=== PATIENT | male | born 1960 | race Caucasian/White ===

== ENCOUNTER 2021-02-05 08:20 | Day surgery (SDC) | payer BC ==
[2021-02-04 15:53] LABS: Absolute Lymphocytes (CBC) 1.9 K/uL (0.7-4.9); Basophils % 1.2 % (0-1.3); Hematocrit 45.9 % (39.6-49.0); Lymphocytes % 17.6 % (15.3-44.8); MPV 7.2 fL (7.6-11.3); RBC Red Blood Cell Count 4.73 M/uL (4.33-5.43)
[2021-02-04 16:06] LABS: Potassium 3.7 mmol/L (3.5-5.1)
--- NOTE | 2021-02-04 16:45 | RAD REPORT ---
EXAM DESCRIPTION: RAD - Chest Pa And Lat (2 Views) - 02/04/2021 3:50 pm CLINICAL HISTORY: preop, patient pending soft tissue mass removal COMPARISON: February 2010 TECHNIQUE: Frontal and lateral views of the chest were obtained. FINDINGS: The lungs are clear of focal finding. Interstitial pattern is more prominent than comparis on. No hilar abnormality seen. Diaphragm is flattened. Heart size is normal and central vasculature is within normal limits. No pleural effusion or pneumothorax seen. No acute bony finding noted. N o aortic abnormality. IMPRESSION: No acute cardiopulmonary process identifiable. Interstitial opacification has increased since 2009 probably a mild progressive fibrosis.
[2021-02-05] MEDS ORDERED: Ringers Lactate 1,000 ML IV ONE (09:26)
[2021-02-05] MEDS: CEFAZOLIN/SWI 1gm 1 GM/10 ML SYR ONE ×2 (09:43→09:58)
[2021-02-05] MEDS ORDERED: EPHEDRINE SULF 50 MG/ML VIAL ONE (10:35)
[2021-02-05] MEDS ORDERED: propofoL 200 MG/20 ML VIAL IV ONE (10:38)
[2021-02-05] MEDS ORDERED: FENTANYL CITR 100 MCG/2 ML ONE (10:38)
[2021-02-05] MEDS ORDERED: MIDAZOLAM HCL 2 MG/2 ML INJ ONE (10:38)
[2021-02-05] MEDS ORDERED: LIDOCAINE 2% MPF 5 ML VIAL ONE (10:38)
[2021-02-05 11:04] VITALS: O2SAT 95
[2021-02-05 11:15] VITALS: TEMP 97.4
--- NOTE | 2021-02-05 11:41 | OP ---
Date of Procedure: 02/05/2021 Surgeon: Yoel Lovett MD Tool And Gauge Inspector: CHACHO Arrington Preoperative Diagnosis: Left neck mass. Postoperative Diagnosis: Left neck mass. Procedure: Wide excision of left neck mass 4 x 2 cm with layered closure. Estimated Blood Loss: Minimal. Specimen: Left neck inflamed cyst Finding: As above. Anesthesia: General. Complications: None. Disposition: The patient tolerated the procedure in stable condition and taken to Recovery in good g eneral condition. Procedure In Detail: The patient was brought to the OR and placed in supine position. General anest hesia begun. The patient was prepped and draped in the usual sterile fashion. Marcaine 0.5% infiltr ated locally. A 15 blade was used to make a 4 x 2 cm incision to excise the cyst, which was in the d ermis, most consistent with an epidermal inclusion cyst down through the subcutaneous tissue. The en tire cyst excised in 1 piece. There was some inflammatory tissue present and cultures were done. Wo und irrigated. Bleeding controlled with cautery. Flaps created. A 2-0 chromic used to approximate the subcutaneous tissue and 5-0 nylon used to close the skin. Sterile dressing applied. The patient was awakened and taken to Recovery in good general condition. Discharge Note: The patient will go to Day Surgery and home when stable. Disposition: Home. Condition: Stable. Discharge Instructions: Resume home medications and diet. Activity as tolerated. No heavy lifting. Remove outer dressing in 2 days. Shower. Keep wound clean and dry. Follow up in my office in a marisela [place]. Call for appointment. Tylenol No.3 one tablet p.o. q.4 p.r.n. pain and Cipro 500 mg p.o. q.12. /MODL Voice ID: [id number] Report ID: [id number]
[2021-02-05 13:47] VITALS: BP 134/87
--- NOTE | 2021-02-06 10:29 | EKG ---
Test Date: 2021-02-04 Test Time: 14:28:16 Blue Split Trimmer: SHENG MEASUREMENT RESULTS: Intervals: Rate: 70 IN: 122 QRSD: 94 QT: 378 QTc: 408 [place]: P: IN: 122 QRS: 96 T: 39 INTERPRETIVE STATEMENTS: Normal sinus rhythm Rightward axis Borderline ECG Compared to ECG 10/01/2007 00:55:35 Right-axis deviation now present Electronically Signed On 02-06-21 10:25:56 CDT by Remy Snowden
== END 2021-02-05 12:22 | disposition home or self-care (01) ==
LOC: OR 08:20
PROVIDERS: ATTEND Surgery
PROC: 0JB50ZZ Excision of Left Neck Subcutaneous Tissue and Fascia, Open Approach (ICD-10-PCS; principal; 2021-02-05 09:45)
DX: L72.0 Epidermal cyst (principal); Z20.822 Contact with and (suspected) exposure to COVID-19
CPT/HCPCS: 93005; 87070; 85025; 80048; 36415; 87205; 88304; 71046; 11424; U0003; J2704; J2250; J3010; J0690; J7120; 88305

== ENCOUNTER 2022-01-18 20:20 | Emergency (ER) | payer BC, SELFPAY ==
--- OUTSIDE RECORDS SUMMARY | 2022-01-18 20:22 | XMS REPORT | Continuity of Care Document ---
:1960 Author Organization [facility] t Address [address] [place] [address] [address] [place] [address] Care Team Providers Name Role Phone RUBÉN Primary Care Physician Unavailable ALEXI BACON Attending Clinician Unavailable Alexi Reece Attending Clinician ALEXI BACON Admitting Clinician Unavailable Payers Payer Name Policy Type Policy Number Effective Date Expiration Date S [facility] - [id number] 2016 00:00:00 OUT OF STATE Problems This patient has no known problems. Allergies, Adverse Reactions, Alerts Allergy Allergy Status Severity Reaction(s) Onset Inactive Treating Comm ents Source Name Type Date Date Clinician NO KNOWN Drug Active [facility] ALLERGIE [facility] Social History Social Habit Start Date Stop Date Quantity Comments Source Exposure to Not sure [facility] SARS-CoV-2 (event) Medica l Branch Alcohol intake 2017-03-17 2017-03-17 0 /d [facility] 00:00:00 00:00:00 [facility] Cigarettes smoked 2016-10-21 2016-10-21 [facility] current (pack per 00:00:00 00:00:00 [facility] day) - Reported Sex Assigned At [birth year] [facility] 00:00:00 00:00:00 [facility] Smoking Status Start Date Stop Date Source Current every day smoker 2016-10-21 00:00:00 [facility] Medications Ordered Filled Start Stop Current Ordering Indication Dosage Frequency Signature Comments Components Source Medication Medication Date Date Medication? Clinician (SIG) Name Name omeprazole Yes 40mg Take 40 mg U nivers 40 mg 8-11 by mouth ity of capsule 08:58: daily. [place] [address] [facility] [place] valsartan-h Yes 1{tbl} Take 1 Un kate ydrochlorot 8-11 tablet by ity of hiazide 08:58: mouth [place] 320-25 mg 31 daily. Medical per tablet Branch GLUC/CHND/O Yes Take by Un kate M3/DHA/EPA/ 8-11 mouth. ity of FISH/STR 08:58: [place] (GLUCOSAMIN 31 Medical E Branch CHONDROITIN PLUS ORAL) ASPIRIN Yes Take by [facility] s ORAL 8-11 mouth. ity of 08:58: [address] Vital Signs Vital Name Observation Time Observation Value Comments Source Body temperature 2021-11-10 15:49:41 36.56 Jasmin [facility] Systolic blood 2021-11-10 14:46:00 169 mm[Hg] [facility] Diastolic blood 2021-11-10 14:46:00 94 mm[Hg] [facility] Heart rate 2021-11-10 14:46:00 71 /min [facility] Respiratory rate 2021-11-10 14:46:00 18 /min [facility] Body weight 2021-11-10 14:46:[address] [facility] BMI 2021-11-10 14:46:00 25.84 kg/m2 [facility] Oxygen saturation in 2021-11-10 14:46:00 96 /min [facility] Arterial blood by [facility] Pulse oximetry Branch Procedures Procedure Date / Time Performed Performing Clinician Kathy e XR SHOULDER 2+ VW 2021-11-10 16:10:00 Loren Bacon [facility] RIGHT [facility] CONSENT/REFUSAL FOR 2021-11-10 14:45:18 [facility] Name Medical Branch TREATMENT Encounters Start End Encounter Admission Attending Care Care Encounter Source Date/Time Date/Time Type Type Clinicians Facility Department ID 2021-11-10 2021-11-10 Emergency X DESTINEE BACON ERT [id number] 85 [facility] 09:45:00 13:04:00 LOREN armas f [facility] 2021-11-10 2021-11-10 Emergency Pamela, TRAUMA [id number] [facility] 09:45:00 13:04:00 [facility] [id number] i Katherine [id number] Raina weaver [id number] [place] [id number] Branch Results This patient has no known results.
[2022-01-18] MEDS ORDERED: dexAMETHasone 10 MG/ML VIAL ONE (20:44)
[2022-01-18] MEDS ORDERED: ONDANSETRON 4 MG/2 ML VIAL ONE ×2 (20:44→22:14)
[2022-01-18] MEDS ORDERED: MORPHINE 4 MG/ML SYR ONE ×2 (20:44→22:14)
[2022-01-18] MEDS ORDERED: KETOROLAC 30 MG/ML INJ ONE (20:44)
[2022-01-18] MEDS ORDERED: DIAZEPAM 5 MG TABLET ONE (20:44)
[2022-01-18 20:59] LABS: Absolute Lymphocytes (CBC) 1.7 K/uL (0.7-4.9); Hematocrit 43.2 % (39.6-49.0); MPV 6.8 fL (7.6-11.3); RBC Red Blood Cell Count 4.34 M/uL (4.33-5.43)
--- NOTE | 2022-01-18 21:11 | RAD REPORT ---
EXAM DESCRIPTION: CT - C Spine Wo Con - 01/18/2022 9:00 pm CLINICAL HISTORY: Radiculopathy COMPARISON: 2012 TECHNIQUE: Computed axial tomography of the cervical spine were obtained with sagittal and coronal r econstruction images generated and reviewed. All CT scans are performed using dose optimization technique as appropriate and may include automated exposure control or mA/KV adjustment according to patient size. FINDINGS: A cervical fracture is not seen. Slight anterior subluxation C3 on C4 and C4 on C5 No dislocation Spondylosis C3-4 results in marked left foraminal stenosis. Small central disc osteophyte complex C5-6 mildly narrows the thecal sac. Possible moderate right posterolateral disc herniation C6-7 IMPRESSION: A cervical fracture is not seen. Spondylosis resulting in marked left foraminal stenosis C3-4 Small central disc osteophyte complex C5-6 Possible moderate right posterolateral disc herniation C6-7. Nonemergent MRI of the cervical spine is recommended
[2022-01-18 21:17] LABS: Albumin 3.5 g/dL (3.4-5.0); Bilirubin Total 1.5 mg/dL (0.2-1.0); Potassium 3.5 mmol/L (3.5-5.1); Protein, Total 6.6 g/dL (6.4-8.2); Troponin High Sensitivity 10.9 pg/mL (<58.9)
--- NOTE | 2022-01-18 21:17 | RAD REPORT ---
EXAM DESCRIPTION: CTThoracic Spine W/o Cont01/18/2022 9:00 pm CLINICAL HISTORY: Radiculopathy TECHNIQUE: Computed axial tomography of thoracic spine was obtained with coronal and sagittal recons truction. All CT scans are performed using dose optimization technique as appropriate and may include automated exposure control or mA/KV adjustment according to patient size. FINDINGS: No fracture is seen. No dislocation. A high-grade central/foraminal stenosis is not noted. IMPRESSION: Negative for a thoracic fracture High-grade central/foraminal stenosis is not noted. If the patient continues to have symptoms to suggest spinal cord/ spinal canal pathology pathology th en MRI would be recommended.
--- NOTE | 2022-01-18 21:50 | EDPHYS ---
Physician Documentation [facility] Name: Carlos Moe Age: 61 yrs Sex: Male : 1960 Arrival Date: 01/18/2022 Time: 20:22 Bed 7 Private MD: ED Physician Candelario Jerry HPI: 01/18 20:35 This 61 yrs old Male presents to ER via EMS with complaints of neck and upper halley back pain. 20:35 The patient presents with pain and decreased range of motion. The symptoms are located halley in the posterior cervical area and thoracic area. Onset: The symptoms/episode began/occurred 3 day(s) ago. The pain radiates to the right arm. Associated signs and symptoms: The patient has no apparent associated signs or symptoms. The problem was sustained from unknown cause. Modifying factors: The patient symptoms are alleviated by remaining still, rest, the patient symptoms are aggravated by lifting, movement. Severity of symptoms: At their worst the symptoms were moderate, in the emergency department the symptoms are unchanged. Historical: - Allergies: 20:23 No Known Allergies; sm5 - PMHx: 20:23 GERD; Hypertension; Chronic obstructive lung disease; Disc Degeneration; Arthritis; sm5 - Immunization history:: Client reports having NOT received the Covid vaccine. - Social history:: Smoking status: Patient reports the use of cigarette tobacco products, smokes one pack cigarettes per day. Patient uses alcohol, claims drinking about a 6 pack/day. - Family history:: not pertinent. ROS: 20:35 Constitutional: Negative for fever, chills, and weight loss, Eyes: Negative for injury, halley pain, redness, and discharge, ENT: Negative for injury, pain, and discharge, Neck: Negative for injury, pain, and swelling, Cardiovascular: Negative for chest pain, palpitations, and edema, Respiratory: Negative for shortness of breath, cough, wheezing, and pleuritic chest pain, Abdomen/GI: Negative for abdominal pain, nausea, vomiting, diarrhea, and constipation, Back: Negative for injury and pain, : Negative for injury, bleeding, discharge, and swelling, Skin: Negative for injury, rash, and discoloration, Neuro: Negative for headache, weakness, numbness, tingling, and seizure, Psych: Negative for depression, anxiety, suicide ideation, homicidal ideation, and hallucinations, Allergy/Immunology: Negative for hives, rash, and allergies, Endocrine: Negative for neck swelling, polydipsia, polyuria, polyphagia, and marked weight changes, Hematologic/Lymphatic: Negative for swollen nodes, abnormal bleeding, and unusual bruising. 20:35 MS/extremity: Positive for decreased range of motion, pain. Exam: 20:35 Constitutional: This is a well developed, well nourished patient who is awake, alert, halley and in no acute distress. Head/Face: Normocephalic, atraumatic. Eyes: Pupils equal round and reactive to light, extra-ocular motions intact. Lids and lashes normal. Conjunctiva and sclera are non-icteric and not injected. Cornea within normal limits. Periorbital areas with no swelling, redness, or edema. ENT: Nares patent. No nasal discharge, no septal abnormalities noted. Tympanic membranes are normal and external auditory canals are clear. Oropharynx with no redness, swelling, or masses, exudates, or evidence of obstruction, uvula midline. Mucous membranes moist. Neck: Trachea midline, no thyromegaly or masses palpated, and no cervical lymphadenopathy. Supple, full range of motion without nuchal rigidity, or vertebral point tenderness. No Meningismus. Chest/axilla: Normal chest wall appearance and motion. Nontender with no deformity. No lesions are appreciated. Cardiovascular: Regular rate and rhythm with a normal S1 and S2. No gallops, murmurs, or rubs. Normal PMI, no JVD. No pulse deficits. Respiratory: Lungs have equal breath sounds bilaterally, clear to auscultation and percussion. No rales, rhonchi or wheezes noted. No increased work of breathing, no retractions or nasal flaring. Abdomen/GI: Soft, non-tender, with normal bowel sounds. No distension or tympany. No guarding or rebound. No evidence of tenderness throughout. Back: No spinal tenderness. No costovertebral tenderness. Full range of motion. Male : Normal genitalia with no discharge or lesions. Skin: Warm, dry with normal turgor. Normal color with no rashes, no lesions, and no evidence of cellulitis. MS/ Extremity: Pulses equal, no cyanosis. Neurovascular intact. Full, normal range of motion. Neuro: Awake and alert, GCS 15, oriented to person, place, time, and situation. Cranial nerves II-XII grossly intact. Motor strength 5/5 in all extremities. Sensory grossly intact. Cerebellar exam normal. Normal gait. Psych: Awake, alert, with orientation to person, place and time. Behavior, mood, and affect are within normal limits. 21:02 ECG was reviewed by the Attending Physician. halley Vital Signs: 20:22 BP 168 / 92; Pulse 67; Resp 11; Temp 98.3(O); Pulse Ox 100% on R/A; Weight 72.57 kg; 5 Height 5 ft. 7 in. (170.18 cm); Pain 10/10; 22:19 BP 159 / 87; Pulse 70; Resp 14; Pulse Ox 100% on R/A; 5 20:22 Body Mass Index 25.06 (72.57 kg, 170.18 cm) [facility] MDM: 20:24 Patient medically screened. halley 20:40 Differential diagnosis: Osteoarthritis ruptured disc, spinal injury, sprain. Data halley reviewed: vital signs, nurses notes, lab test result(s), EKG, radiologic studies, CT scan. Data interpreted: starch cooker: rate is 67 beats/min, rhythm is regular, Pulse oximetry: on room air is 100 %. Test interpretation: by ED physician or midlevel provider: ECG. Counseling: I had a detailed discussion with the patient and/or guardian regarding: the historical points, exam findings, and any diagnostic results supporting the discharge/admit diagnosis, lab results, radiology results, the need for outpatient follow up, for definitive care, a family practitioner, a neurosurgeon. 01/18 20:32 Order name: CBC with Diff; Complete Time: 21:45 [facility] 01/18 20:32 Order name: Comprehensive Metabolic Panel; Complete Time: 21:45 [facility] 01/18 20:32 Order name: CT C Spine; Complete Time: 21:45 [facility] 01/18 20:32 Order name: CT Thoracic Spine Wo Cont; Complete Time: 21:45 [facility] 01/18 20:32 Order name: Troponin High Sensitivity; Complete Time: 21:45 [facility] 01/18 20:32 Order name: EKG; Complete Time: 20:32 [facility] 01/18 20:32 Order name: EKG - Nurse/Tech; Complete Time: 20:49 halley EC:02 Rate is 61 beats/min. Rhythm is regular. QRS [place] is Normal. [place] interval is shortened halley at 110 msec. QRS interval is normal. QT interval is normal. No Q waves. T waves are Normal. No ST changes noted. Clinical impression: No evidence of ischemia. Interpreted by me. Reviewed by me. Administered Medications: 20:49 Drug: Decadron - Dexamethasone 10 mg Route: IVP; Site: left antecubital; sm5 21:26 Follow up: Response: No adverse reaction sm5 20:49 Drug: Ketorolac 30 mg Route: IVP; Site: left antecubital; sm5 21:26 Follow up: Response: No adverse reaction sm5 20:49 Drug: Valium (diazepam) 5 mg Route: PO; sm5 21:26 Follow up: Response: No adverse reaction sm5 20:49 Drug: morphine 4 mg Route: IVP; Infused Over: 4 mins; Site: left antecubital; sm5 21:27 Follow up: Response: No adverse reaction sm5 20:49 Drug: Zofran (Ondansetron) 4 mg Route: IVP; Site: left antecubital; sm5 21:27 Follow up: Response: No adverse reaction sm5 22:07 Drug: morphine 4 mg Route: IVP; Infused Over: 4 mins; Site: left antecubital; sm5 22:20 Follow up: Response: No adverse reaction sm5 22:07 Drug: Zofran (Ondansetron) 4 mg Route: IVP; Site: left antecubital; sm5 22:21 Follow up: Response: No adverse reaction sm5 Disposition Summary: 01/18/22 21:49 Discharge Ordered Location: Home halley Problem: new halley Symptoms: have improved halley Condition: Stable halley Diagnosis - Cervical disc disorder with radiculopathy halley - Cervical disc disorder with radiculopathy, unspecified cervical region halley - Spondylolysis, cervical region halley Followup: halley - With: Private Physician - When: 2 - 3 days - Reason: Recheck today's complaints, Continuance of care, Re-evaluation by your physician Followup: halley - With: - When: 2 - 3 days - Reason: Recheck today's complaints, Re-evaluation by your physician Discharge Instructions: - Discharge Summary Sheet halley - Cervical Radiculopathy halley - Herniated Disk halley - Herniated Disk, [id number] halley - Cervical Radiculopathy, [id number] halley - Radicular Pain halley Forms: - Medication Reconciliation Form halley - Thank You Letter halley - Antibiotic Education halley - Prescription Opioid Use halley Prescriptions: - Valium 5 mg Oral Tablet - take 1 tablet by ORAL route every 8 hours As needed; 20 tablet; Refills: 0, halley Product Selection Permitted - Diclofenac Sodium 75 mg Oral tablet,delayed release (DR/EC) - take 1 tablet by ORAL route 2 times per day; 20 tablet; Refills: 0, Product [facility] Selection Permitted - Tylenol-Codeine #3 300 mg-30 mg Oral - take 2 tablet by ORAL route every 6 hours; 20 tablet; Refills: 0, Product halley Selection Permitted - dexamethasone 2 mg Oral tablet - take 1 tablet by ORAL route 3 times per day; 15 tablet; Refills: 0, Product halley Selection Permitted Signatures: Dispatcher [employer] Candelario Veronica MD MD cha Mazur, Sarah, RN RN sm5
--- NOTE | 2022-01-18 21:50 | ER ---
Nurse's Notes [facility] Name: Carlos Moe Age: 61 yrs Sex: Male : 1960 Arrival Date: 01/18/2022 Time: 20:22 Bed 7 Private MD: Diagnosis: Cervical disc disorder with radiculopathy;Cervical disc disorder with radiculopathy, unspecified cervical region;Spondylolysis, cervical region Presentation: 01/18 20:22 Chief complaint: EMS states: pt has had neck pain for the past day. has hx of disc sm5 degeneration. Coronavirus screen: Vaccine status: Patient reports being unvaccinated. Ebola Screen: No symptoms or risks identified at this time. Initial Sepsis Screen: Does the patient meet any 2 criteria? No. Patient's initial sepsis screen is negative. Does the patient have a suspected source of infection? No. Patient's initial sepsis screen is negative. Risk Assessment: Do you want to hurt yourself or someone else? Patient reports no desire to harm self or others. Onset of symptoms was January 17, 2022. 20:22 Method Of Arrival: EMS: [place] [id number] 20:22 Acuity: VITALIY 4 sm5 Triage Assessment: 20:24 General: Appears in no apparent distress. Behavior is cooperative. Pain: Complains of sm5 pain in neck. Pain: Pain radiates to right arm. Neuro: No deficits noted. Yu Agitation-Sedation Scale (RASS): 0 - Alert and Calm Level of Consciousness is awake, alert, obeys commands, Oriented to person, place, time, situation. Cardiovascular: No deficits noted. Capillary refill < 3 seconds Patient's skin is warm and dry. Rhythm is regular. Respiratory: No deficits noted. Airway is patent Trachea midline Respiratory effort is even, unlabored. GI: No deficits noted. Historical: - Allergies: 20:23 No Known Allergies; sm5 - PMHx: 20:23 GERD; Hypertension; Chronic obstructive lung disease; Disc Degeneration; Arthritis; sm5 - Immunization history:: Client reports having NOT received the Covid vaccine. - Social history:: Smoking status: Patient reports the use of cigarette tobacco products, smokes one pack cigarettes per day. Patient uses alcohol, claims drinking about a 6 pack/day. - Family history:: not pertinent. Screenin:24 Abuse screen: Denies threats or abuse. Denies injuries from another. Nutritional sm5 screening: No deficits noted. Tuberculosis screening: No symptoms or risk factors identified. Fall Risk None identified. Assessment: 20:30 Reassessment: see triage assessment. sm5 21:30 Reassessment: No changes from previously documented assessment. Patient and/or family sm5 updated on plan of care and expected duration. Pain level reassessed. 22:19 Reassessment: No changes from previously documented assessment. Patient is alert, sm5 oriented x 3, equal unlabored respirations, skin warm/dry/pink. Vital Signs: 20:22 BP 168 / 92; Pulse 67; Resp 11; Temp 98.3(O); Pulse Ox 100% on R/A; Weight 72.57 kg; sm5 Height 5 ft. 7 in. (170.18 cm); Pain 10/10; 22:19 BP 159 / 87; Pulse 70; Resp 14; Pulse Ox 100% on R/A; sm5 20:22 Body Mass Index 25.06 (72.57 kg, 170.18 cm) sm5 ED Course: 20:22 Patient arrived in ED. sm5 20:23 Triage completed. sm5 20:24 aCndelario Jerry MD is Attending Physician. halley 20:24 Arm band placed on right wrist. sm5 20:25 Patient has correct armband on for positive identification. Placed in gown. Bed in low sm5 position. Call light in reach. Side rails up X2. Client placed on continuous cardiac and pulse oximetry monitoring. NIBP monitoring applied. 20:30 Villa Juarez RN is Primary Nurse. as6 20:48 Inserted saline lock: 20 gauge in left antecubital area, using aseptic technique. Blood sm5 collected. 21:02 CT C Spine In Process Unspecified. EDMS 21:02 CT Thoracic Spine Wo Cont In Process Unspecified. EDMS 21:47 Juliano Jenkins MD is Referral Physician. halley 22:20 No provider procedures requiring assistance completed. IV discontinued, intact, sm5 bleeding controlled, No redness/swelling at site. Pressure dressing applied. 22:22 Primary Nurse role handed off by Villa Juarez, RN vc1 Administered Medications: 20:49 Drug: Decadron - Dexamethasone 10 mg Route: IVP; Site: left antecubital; sm5 21:26 Follow up: Response: No adverse reaction sm5 20:49 Drug: Ketorolac 30 mg Route: IVP; Site: left antecubital; sm5 21:26 Follow up: Response: No adverse reaction sm5 20:49 Drug: Valium (diazepam) 5 mg Route: PO; sm5 21:26 Follow up: Response: No adverse reaction sm5 20:49 Drug: morphine 4 mg Route: IVP; Infused Over: 4 mins; Site: left antecubital; sm5 21:27 Follow up: Response: No adverse reaction sm5 20:49 Drug: Zofran (Ondansetron) 4 mg Route: IVP; Site: left antecubital; sm5 21:27 Follow up: Response: No adverse reaction sm5 22:07 Drug: morphine 4 mg Route: IVP; Infused Over: 4 mins; Site: left antecubital; sm5 22:20 Follow up: Response: No adverse reaction sm5 22:07 Drug: Zofran (Ondansetron) 4 mg Route: IVP; Site: left antecubital; sm5 22:21 Follow up: Response: No adverse reaction 5 Medication: 20:25 VIS not applicable for this client. 5 Outcome: 21:49 Discharge ordered by . halley 22:20 Discharged to home via wheelchair, with significant other. 5 22:20 Condition: stable 22:20 Discharge instructions given to patient, significant other, Instructed on discharge instructions, follow up and referral plans. no drinking with medication, no driving heavy equipment, medication usage, Demonstrated understanding of instructions, follow-up care, medications, Prescriptions given X 4. 22:21 Patient left the ED. sm5 22:25 Patient left the ED. as6 Signatures: Dispatcher [employer] EDPA Candelario Jerry MD MD cha Slawson, Ashby RN RN as6 Luz Elena Nuñez RN RN sm5 Elham Moran RN RN vc1 Corrections: (The following items were deleted from the chart) 20:50 20:24 Pain: Pain radiates to left arm 5 5
[2022-01-18 22:27] VITALS: TEMP 98.3; O2SAT 100
[2022-01-18 22:28] VITALS: BP 159/87
--- NOTE | 2022-01-19 08:06 | EKG ---
Test Date: 2022-01-18 Test Time: 20:43:29 [place]: MEASUREMENT RESULTS: Intervals: Rate: 61 MA: 110 QRSD: 94 QT: 412 QTc: 414 [place]: P: 25 MA: 110 QRS: 81 T: 40 INTERPRETIVE STATEMENTS: Sinus rhythm with short MA Otherwise normal ECG Compared to ECG 02/04/2021 14:28:16 Short MA interval now present Right-axis deviation no longer present Electronically Signed On 01-19-22 08:05:27 CDT by Remy Snowden
== END 2022-01-18 22:25 | disposition home or self-care (01) ==
LOC: ER 20:20
DX: M50.10 Cervical disc disorder with radiculopathy, unspecified cervical region (principal); M43.02 Spondylolysis, cervical region; I10 Essential (primary) hypertension; F17.210 Nicotine dependence, cigarettes, uncomplicated
CPT/HCPCS: 36415; 72125; 72128; 80053; 84484; 85025; 93005; 96374; 96375; 99284; J1100; J2405

== ENCOUNTER 2023-01-16 06:30 | Emergency (ER) | payer BC ==
--- OUTSIDE RECORDS SUMMARY | 2023-01-16 06:32 | XMS REPORT | Continuity of Care Document ---
:1960 Author Organization [facility] t Address [address] [place] [place] [address] Care Team Providers Name Role Phone Kinza [place] Primary Care Physician Unavailable LOREN BACON Attending Clinician Unavailable Loren Reece Attending Clinician LOREN BACON Admitting Clinician Unavailable Payers Payer Name Policy Type Policy Number Effective Date Expiration Date S [facility] - [id number] 2016 00:00:00 OUT OF STATE Problems This patient has no known problems. Allergies, Adverse Reactions, Alerts Allergy Allergy Status Severity Reaction(s) Onset Inactive Treating Comm ents Source Name Type Date Date Clinician NO KNOWN Drug Active Univers ALLERGIE Class [facility] Social History Social Habit Start Date Stop Date Quantity Comments Source Exposure to Not sure [facility] SARS-CoV-2 (event) Medica l Branch Alcohol intake 2017-03-17 2017-03-17 0 /d [facility] 00:00:00 00:00:[address] [facility] Cigarettes smoked 2016-10-21 2016-10-21 [facility] current (pack per 00:00:00 00:00:[address] [facility] day) - Reported Sex Assigned At [birth year] [facility] 00:00:00 00:00:[address] [facility] Smoking Status Start Date Stop Date Source Current every day smoker 2016-10-21 00:00[facility] Ordered Filled Start Stop Current Ordering Indication Dosage Frequency Signature Comments Components Source Medication Medication Date Date Medication? Clinician (SIG) Name Name omeprazole Yes 40mg Take 40 mg U nivers 40 mg 8-11 by mouth ity of capsule 08:58: daily. [place] [address] Medical Branch valsartan-h Yes 1{tbl} Take 1 Un kate ydrochlorot 8-11 tablet by ity of hiazide 08:58: mouth [place] 320-25 mg 31 daily. Medical per tablet Branch GLUC/CHND/O Yes Take by Uni vers M3/DHA/EPA/ 8-11 mouth. ity of FISH/STR 08:58: [place] (GLUCOSAMIN 31 Medical E Branch CHONDROITIN PLUS ORAL) ASPIRIN Yes Take by Univers ORAL 8-11 mouth. ity of 08:58: [address] Vital Signs Vital Name Observation Time Observation Value Comments Source Body temperature 2021-11-10 15:49:41 36.56 Jasmin [facility] Systolic blood 2021-11-10 14:46:00 169 mm[Hg] [facility] Diastolic blood 2021-11-10 14:46:00 94 mm[Hg] [facility] Heart rate 2021-11-10 14:46:00 71 /min [facility] Respiratory rate 2021-11-10 14:46:00 18 /min [facility] Body weight 2021-11-10 14:46:00 74.844 kg [facility] BMI 2021-11-10 14:46:00 25.84 kg/m2 [facility] Oxygen saturation in 2021-11-10 14:46:00 96 /min [facility] Arterial blood by [facility] Pulse oximetry Branch Procedures Procedure Date / Time Performed Performing Clinician Kathy e XR SHOULDER 2+ VW 2021-11-10 16:10:00 Loren Bacon [facility] RIGHT [facility] CONSENT/REFUSAL FOR 2021-11-10 14:45:18 [facility] Name [facility] Branch TREATMENT Encounters Start End Encounter Admission Attending Care Care Encounter Source Date/Time Date/Time Type Type Clinicians Facility Department ID 2021-11-10 2021-11-10 Emergency X PAMELA OHROWENA ERT [id number] [facility] 09:45:00 13:04:00 LOREN welch o f [facility] 2021-11-10 2021-11-10 Emergency Pamela, TRAUMA [id number] Univers 09:45:00 13:04:00 [facility] [id number] i Katherine [id number] Raina weaver [id number] [place] [address] Branch Results This patient has no known results.
[2023-01-16] MEDS ORDERED: NITROGLYCERIN 0.4 MG/TAB SL ONE (06:47)
[2023-01-16] MEDS ORDERED: HEPARIN/D5W 25,000 UNIT/500 ML BAG IV ONE (07:04)
[2023-01-16] MEDS ORDERED: HEPARIN 5000 UNIT/ML 1 ML VIAL ONE (07:04)
[2023-01-16 07:06] LABS: Potassium 3.8 mEq/L (3.5-5.1)
[2023-01-16 07:08] LABS: Protime INR 0.94; Troponin High Sensitivity 238.9 pg/mL (<58.9)
[2023-01-16 07:15] LABS: Absolute Lymphocytes (CBC) 0.8 K/uL (0.7-4.9); Hematocrit 43.5 % (39.6-49.0); Lymphocytes % 5.9 % (15.3-44.8); MCV 101.9 fL (80-100); MPV 7.2 fL (7.6-11.3); RBC Red Blood Cell Count 4.27 M/uL (4.33-5.43)
--- NOTE | 2023-01-16 07:18 | ER ---
Nurse's Notes [facility] Name: Carlos Moe Age: 62 yrs Sex: Male : 1960 Arrival Date: 01/16/2023 Time: 06:30 Bed 4 Private MD: Diagnosis: ST elevation (STEMI) myocardial infarction involving other sites;Subsequent ST elevation (STEMI) myocardial infarction of unspecified site Presentation: 01/16 06:32 Chief complaint: Patient states: chest pain radiating to back of neck and shoulders kl pain began lyesterday at 4 pain has been worsening. Coronavirus screen: Vaccine status: Patient reports being unvaccinated. Ebola Screen: Patient negative for fever greater than or equal to 101.5 degrees Fahrenheit, and additional compatible Ebola Virus Disease symptoms. Initial Sepsis Screen: Does the patient meet any 2 criteria? No. Patient's initial sepsis screen is negative. Does the patient have a suspected source of infection? No. Patient's initial sepsis screen is negative. Risk Assessment: Do you want to hurt yourself or someone else? Patient reports no desire to harm self or others. 06:32 Method Of Arrival: EMS: [facility] 06:32 Acuity: VITALIY 2 06:36 Onset of symptoms was January 15, 2023 at 16:00. Care prior to arrival: Medication(s) kl given: ASA, 81 mg, Nitroglycerin, 0.4 mg SL IV initiated. 20 GA, in the left antecubital area. Triage Assessment: 06:35 General: Appears distressed, uncomfortable, Behavior is cooperative, anxious. Pain: kl Complains of pain in chest Pain radiates to posterior chest Pain currently is 10 out of 10 on a pain scale. Quality of pain is described as heavy, pressure, Pain began 1 day ago. Cardiovascular: Reports chest pain, shortness of breath, Rhythm is sinus rhythm. Historical: - Allergies: 06:35 No Known Allergies; kl - PMHx: 06:35 Arthritis; Chronic obstructive lung disease; Disc Degeneration; GERD; Hypertension; kl - Immunization history:: Adult Immunizations not immunized. - Social history:: Smoking status: Patient reports the use of cigarette tobacco products, smokes one pack cigarettes per day. Screenin:37 [facility] ED Fall Risk Assessment (Adult) History of falling in the last 3 months, kl including since admission No falls in past 3 months (0 pts) Confusion or Disorientation No (0 pts) Intoxicated or Sedated No (0 pts) Impaired Gait No (0 pts) Mobility Assist Device Used No (0 pt) Altered Elimination No (0 pt) Score/Fall Risk Level 0 - 2 = Low Risk Oriented to surroundings, Maintained a safe environment. Abuse screen: Denies threats or abuse. Nutritional screening: No deficits noted. Tuberculosis screening: No symptoms or risk factors identified. Assessment: 06:43 Reassessment: Pt reports relief with sublingual nitro. jb4 07:08 Reassessment: Dr. Magallon notified of critical lab value Troponin 238.5. ss 07:26 Reassessment: Patient appears in no apparent distress at this time. Patient and/or ph family updated on plan of care and expected duration. Pain level reassessed. Patient is alert, oriented x 3, equal unlabored respirations, skin warm/dry/pink. [facility] at bedside. Vital Signs: 06:32 BP 151 / 91; Pulse 63; Resp 22; Pulse Ox 99% on R/A; Weight 70 kg (M); Height 5 ft. 7 kl in. ; Pain 10/10; 07:17 BP 150 / 83; Pulse 63; Resp 12; Pulse Ox 98% on 2 lpm NC; ph 06:32 Body Mass Index 24.17 (70.00 kg, 170.18 cm) kl 06:32 Pain Scale: Adult ED Course: 06:30 Patient arrived in ED. rv1 06:32 Jace Magallon MD is Attending Physician. bs3 06:35 Triage completed. kl 06:37 Ptt, Activated Sent. rv 06:37 PT-INR Sent. rv 06:37 Troponin High Sensitivity Sent. rv 06:37 BMP Sent. rv 06:37 CBC with Diff Sent. rv 06:37 Arm band placed on left wrist. EKG completed in triage. Results shown to MD. kl 06:38 Patient has correct armband on for positive identification. Bed in low position. Call light in reach. Side rails up X2. Client placed on continuous cardiac and pulse oximetry monitoring. NIBP monitoring applied. Warm blanket given. 06:41 Juliano Garcia, RN is Primary Nurse. jb4 06:41 Inserted saline lock: 18 gauge in right antecubital area, using aseptic technique. jb4 06:50 XRAY Chest (1 view) In Process Unspecified. EDMS 07:26 No provider procedures requiring assistance completed. Patient transferred, IV remains ph in place. Administered Medications: 06:41 Drug: Nitroglycerin Sublingual 0.4 mg Route: Sublingual; jb4 07:27 Follow up: Response: No adverse reaction ph 07:03 Drug: Heparin ([place] Drip) - (D5W IV 500 ml, [place] [address] units) 12 units/kg/hr jb4 {Co-Signature: ph (Jacklyn Beauchamp RN).} Route: IV; Rate: calculated rate; Site: left antecubital; 07:27 Follow up: Response: No adverse reaction; IV Status: Infusion continued upon transfer ph 07:04 Drug: Heparin (ME-Bolus No thrombolytic) - HEParin IVP 60 units/kg {Co-Signature: ph jb4 (Jacklyn Beauchamp RN).} Route: IVP; Site: left antecubital; 07:27 Follow up: Response: No adverse reaction ph Medication: 06:38 VIS not applicable for this client. kl Outcome: 07:18 ER care complete, transfer ordered by ms3 07:27 Transferred by ground EMS [facility]. to [facility], [facility], Transfer form ph completed. X-rays sent w/ patient. 07:27 Condition: stable 07:27 Instructed on the need for transfer. 07:28 Patient left the ED. ph Signatures: Dispatcher [employer] EDMS Lorena Roldan RN RN Yaz Best RN RN Jacklyn Beauchamp, DIANE RN ph Juliano Garcia RN RN jb4 Quintin Rebollar RN RN rv Sims, Marcus, DO DO ms3 Jace Magallon MD MD bs3 Krystal Soria rv1 Jacklyn Beauchamp RN ph
--- NOTE | 2023-01-16 07:19 | EDPHYS ---
Physician Documentation [facility] Name: Carlos Moe Age: 62 yrs Sex: Male : 1960 Arrival Date: 01/16/2023 Time: 06:30 Bed 4 Private MD: ED Physician Jace Magallon HPI: 01/16 07:13 This 62 yrs old Male presents to ER via EMS with complaints of Chest Pain > bs3 29 y/o. 07:13 62-year-old male current smoker, history of COPD and hypertension presents with chest bs3 pain started last night and got worse several hours prior to arrival he had associated nausea no vomiting he has never had pain like this before he describes it as a pressure/squeezing sensation going toward his bilateral shoulders he denies numbness or tingling or weakness in his extremities history is limited secondary condition and his pain. Historical: - Allergies: 06:35 No Known Allergies; kl - PMHx: 06:35 Arthritis; Chronic obstructive lung disease; Disc Degeneration; GERD; Hypertension; kl - Immunization history:: Adult Immunizations not immunized. - Social history:: Smoking status: Patient reports the use of cigarette tobacco products, smokes one pack cigarettes per day. ROS: 07:13 Constitutional: Negative for fever, chills bs3 07:13 All other systems are negative. Exam: 07:13 Constitutional: Patient appears in moderate distress Head/Face: Normocephalic, bs3 atraumatic. Eyes: Pupils equal round and reactive to light, extra-ocular motions intact. Lids and lashes normal. ENT: mmm, no posterior phyarngeal erythema Neck: Trachea midline, no thyromegaly, no neck stiffness Chest/axilla: Normal chest wall appearance and motion. Nontender with no deformity. No lesions are appreciated. Cardiovascular: Regular rate and rhythm with a normal S1 and S2. symmetric pulses in upper extremities MS/ Extremity: Pulses equal, no cyanosis. Neurovascular intact. Full, normal range of motion. Neuro: Awake and alert, GCS 15, oriented to person, place, time, and situation. Cranial nerves II-XII grossly intact. Motor strength 5/5 in all extremities. Sensory grossly intact. Psych: Awake, alert, with orientation to person, place and time. Behavior, mood, and affect are within normal limits. 07:13 EKG is normal sinus rhythm, st elevation in lateral leads with ant depression qtc normal. Vital Signs: 06:32 BP 151 / 91; Pulse 63; Resp 22; Pulse Ox 99% on R/A; Weight 70 kg (M); Height 5 ft. 7 kl in. ; Pain 10/10; 07:17 BP 150 / 83; Pulse 63; Resp 12; Pulse Ox 98% on 2 lpm NC; ph 06:32 Body Mass Index 24.17 (70.00 kg, 170.18 cm) kl 06:32 Pain Scale: Adult kl MDM: 06:36 Patient medically screened. bs3 07:13 Differential diagnosis: abnormal EKG, acute myocardial infarction, thoracic aortic bs3 disection. Data reviewed: vital signs, nurses notes. 07:13 ED course: I was concerned about st elevation in lateral leads, I activated stemi, and bs3 discussed with [facility] interventional, who believes this unstable angina, he recommended against tnk, but did agree with heparin he had symmetric pulses and bp within 10mm in b/l upper ext therefore, dissection less likely. . 07:13 ED course: given lack of capacity for ccu, will transfer to [facility].. bs3 01/16 06:33 Order name: CBC with Diff bs3 01/16 06:33 Order name: BMP; Complete Time: 07:19 bs3 01/16 06:33 Order name: Troponin High Sensitivity; Complete Time: 07:19 bs3 01/16 06:33 Order name: PT-INR; Complete Time: 07:19 bs3 01/16 06:33 Order name: Ptt, Activated; Complete Time: 07:19 bs3 01/16 06:33 Order name: XRAY Chest (1 view) bs3 06 06:33 Order name: EKG - Nurse/Tech; Complete Time: 06:37 bs3 01/16 06:33 Order name: Monitor; Complete Time: 06:37 bs3 01/16 07:03 Order name: Labs - recollect needed: purple top only; Complete Time: 07:12 ss Administered Medications: 06:41 Drug: Nitroglycerin Sublingual 0.4 mg Route: Sublingual; jb4 07:27 Follow up: Response: No adverse reaction ph 07:03 Drug: Heparin ([place] Drip) - (D5W IV 500 ml, [place] [address] units) 12 units/kg/hr jb4 {Co-Signature: ph (Jacklyn Beauchamp RN).} Route: IV; Rate: calculated rate; Site: left antecubital; 07:27 Follow up: Response: No adverse reaction; IV Status: Infusion continued upon transfer ph 07:04 Drug: Heparin (MN-Bolus No thrombolytic) - HEParin IVP 60 units/kg {Co-Signature: ph jb4 (Jacklyn Beauchamp RN).} Route: IVP; Site: left antecubital; 07:27 Follow up: Response: No adverse reaction ph Disposition: 07:13 Critical Care:. bs3 Disposition Summary: 01/16/23 07:18 Transfer Ordered Transfer Location: [facility](01/16/23 07:19) bs3 Reason: Higher level of care(01/16/23 07:19) bs3 Condition: Serious(01/16/23 07:19) bs3 Problem: new(01/16/23 07:19) bs3 Symptoms: have improved(01/16/23 07:19) bs3 Accepting Physician: tyrel(01/16/23 07:28) ph Diagnosis - ST elevation (STEMI) myocardial infarction involving other sites ms3 - Subsequent ST elevation (STEMI) myocardial infarction of unspecified site bs3 Discharge Instructions: - Discharge Summary Sheet rv1 Forms: - Medication Reconciliation Form ms3 - SBAR form rv1 Critical care time excluding procedures: 07:13 Critical care time: Bedside Care: 35 minutes, Consultation: 30 minutes. Total time: 65 bs3 minutes Signatures: Dispatcher [employer] EDLorena Dupree RN RN kl Blanchard, Shelby, RN RN Jacklyn Beauchamp RN RN Juliano Garcia RN RN jb4 Elver Long DO DO ms3 Jace Magallon MD MD bs3 Jacklyn Beauchamp RN ph Corrections: (The following items were deleted from the chart) 07:19 07:18 Dr Johnston ms3 bs3 07:19 07:18 [facility] ms3 bs3 07:19 07:18 Higher level of care ms3 bs3 07:19 07:18 Stable ms3 bs3 07:19 07:18 new ms3 bs3 07:19 07:18 are unchanged ms3 bs3 07:28 07:19 tyrel bs3 ph
[2023-01-16 07:45] VITALS: BP 150/83; O2SAT 98
--- NOTE | 2023-01-16 08:42 | RAD REPORT ---
EXAM DESCRIPTION: RAD - Chest Single View - 01/16/2023 6:48 am CLINICAL HISTORY: CHEST PAIN Chest pain. COMPARISON: Chest Pa And Lat (2 Views) dated 02/04/2021; CHEST PA AND LAT 2 VIEW dated 02/22/2010; CHES T PA AND LAT 2 VIEW dated 10/01/2007 FINDINGS: Portable technique limits examination quality. The lungs are emphysematous but grossly clear. The heart is normal in size. No displaced fractures. IMPRESSION: Prominent COPD.
--- NOTE | 2023-01-16 12:01 | EKG ---
Test Date: 2023-01-16 Test Time: 06:52:02 Engineering Programmer: MAGNO MEASUREMENT RESULTS: Intervals: Rate: 58 MS: 120 QRSD: 96 QT: 430 QTc: 422 [place]: P: 58 MS: 120 QRS: 69 T: 35 INTERPRETIVE STATEMENTS: Sinus bradycardia Otherwise normal ECG Compared to ECG 01/18/2022 20:43:29 Sinus rhythm no longer present Short MS interval no longer present Electronically Signed On 01-16-23 12:00:15 CDT by Remy Snowden
== END 2023-01-16 07:28 | disposition short-term general hospital (02) ==
LOC: ER 06:30
DX: I21.29 ST elevation (STEMI) myocardial infarction involving other sites (principal); I22.9 Subsequent ST elevation (STEMI) myocardial infarction of unspecified site; I10 Essential (primary) hypertension; J44.9 Chronic obstructive pulmonary disease, unspecified; F17.210 Nicotine dependence, cigarettes, uncomplicated
CPT/HCPCS: 96365; 93005; 85025; 80048; 36415; 85610; 85730; 84484; 71045; 99285; J1644

== ENCOUNTER 2024-06-15 18:54 | Emergency (ER) | payer OTHER ==
--- NOTE | 2024-06-15 20:25 | RAD REPORT ---
EXAMINATION: ONE VIEW CHEST XR CLINICAL INDICATION: Male, 64 years old.fall, rib injury TECHNIQUE: 1 View, AP supine, X-ray of the chest was performed. [id number]. COMPARISON: 02/24/2024 FINDINGS: Lungs and pleura: Clear lungs. No effusion. Heart and mediastinum: Normal heart size. Unremarkable mediastinal contours. Osseous structures: No acute abnormality. Sternotomy. Tubes/lines: None Other: None. IMPRESSION: No acute intrathoracic abnormality.
--- NOTE | 2024-06-15 20:26 | RAD REPORT ---
EXAM:Ribs Right HISTORY: fall;Chest pain COMPARISON: 02/24/2024 IMPRESSION: No displaced right-sided rib fractures identified. No pneumothorax.
--- NOTE | 2024-06-15 20:50 | ER ---
Nurse's Notes [facility] Name: Carlos Moe Age: 64 yrs Sex: Male : 1960 Arrival Date: 06/15/2024 Time: 18:54 Bed DX4 Private MD: Diagnosis: Rib Contusion Presentation: 06/15 19:22 Chief complaint: Patient states: fall from standing position this morning. pain to lg3 right rib area. denies LOC. Coronavirus screen: Client denies travel out of the [place] in the last 14 days. At this time, the client does not indicate any symptoms associated with coronavirus-19. Ebola Screen: No symptoms or risks identified at this time. Initial Sepsis Screen: Does the patient meet any 2 criteria? No. Patient's initial sepsis screen is negative. Does the patient have a suspected source of infection? No. Patient's initial sepsis screen is negative. Risk Assessment: Do you want to hurt yourself or someone else? Patient reports no desire to harm self or others. Onset of symptoms was June 15, 2024. 19:22 Method Of Arrival: Ambulatory lg3 19:22 Acuity: VITALIY 4 lg3 Triage Assessment: 19:23 General: Appears in no apparent distress. comfortable, Behavior is calm, cooperative. lg3 Pain: Complains of pain in right rib area. EENT: No deficits noted. No signs and/or symptoms were reported regarding the EENT system. Neuro: No deficits noted. Yu Agitation-Sedation Scale (RASS): 0 - Alert and Calm Level of Consciousness is awake, alert, obeys commands, Oriented to person, place, time, situation. Cardiovascular: No deficits noted. Denies chest pain, shortness of breath, Capillary refill < 3 seconds Clubbing of nail beds is absent JVD is absent Patient's skin is warm and dry. Respiratory: No deficits noted. Reports pain with cough Airway is patent Respiratory effort is even, unlabored, Respiratory pattern is regular, symmetrical. GI: No deficits noted. No signs and/or symptoms were reported involving the gastrointestinal system. Abdomen is round non-distended. : No signs and/or symptoms were reported regarding the genitourinary system. Derm: No deficits noted. No signs and/or symptoms reported regarding the dermatologic system. Skin is intact, is healthy with good turgor, Skin is dry, Skin is normal, Skin temperature is warm. Musculoskeletal: Circulation, motion, and sensation intact. Range of motion: intact in all extremities, Reports pain in right rib area. Historical: - Allergies: 19: No Known Allergies; lg3 - Home Meds: : Unable to obtain [Active]; lg3 - PMHx: 19:23 Arthritis; Chronic obstructive lung disease; Disc Degeneration; GERD; Hypertension; lg3 Myocardial infarction; - PSHx: 19: bipass (Myocardial infarction); lg3 - Immunization history:: Adult Immunizations up to date. - Infectious Disease History:: Denies. - Social history:: Smoking status: Patient reports the use of cigarette tobacco products, smokes one pack cigarettes per day. Patient uses alcohol, on a daily basis. Patient/guardian denies using street drugs. Screenin:25 [facility] ED Fall Risk Assessment (Adult) History of falling in the last 3 months, lg3 including since admission Yes- single mechanical fall (1 pt) Confusion or Disorientation No (0 pts) Intoxicated or Sedated No (0 pts) Impaired Gait No (0 pts) Mobility Assist Device Used No (0 pt) Altered Elimination No (0 pt) Score/Fall Risk Level 0 - 2 = Low Risk Oriented to surroundings, Maintained a safe environment, Educated pt \T\ family on fall prevention, incl call for assistance when getting out of bed, Assessed \T\ reinforced patient's understanding of fall precautions. Abuse screen: Denies threats or abuse. Denies injuries from another. Nutritional screening: No deficits noted. Tuberculosis screening: No symptoms or risk factors identified. Assessment: 19:25 General: see triage assessment. lg3 21:04 Reassessment: Patient appears in no apparent distress at this time. No changes from lg3 previously documented assessment. Patient and/or family updated on plan of care and expected duration. Pain level reassessed. Patient is alert, oriented x 3, equal unlabored respirations, skin warm/dry/pink. Vital Signs: 19:22 BP 136 / 90; Pulse 85; Resp 17 S; Temp 98.4(O); Pulse Ox 97% on R/A; Weight 70.31 kg lg3 (R); Height 5 ft. 6 in. (R); Pain 8/10; 21:04 BP 131 / 87; Pulse 81; Resp 17 S; Pulse Ox 98% on R/A; lg3 19:22 Body Mass Index 25.02 (70.31 kg, 167.64 cm) lg3 19:22 Pain Scale: Adult lg3 ED Course: 19:01 Patient arrived in ED. mg5 19:03 Dayne Terry MD is Attending Physician. ec2 19:23 Triage completed. lg3 19:23 Arm band placed on left wrist. lg3 19:25 Patient taken to [facility]. lg3 19:25 Patient has correct armband on for positive identification. Family accompanied patient. lg3 20:16 CXR XRAY In Process Unspecified. EDMS 20:16 Ribs Right XRAY In Process Unspecified. EDMS 21:04 Seema Erwin RN is Primary Nurse. lg3 21:18 No provider procedures requiring assistance completed. Patient did not have IV access lg3 during this emergency room visit. Administered Medications: 21:04 Drug: Acetaminophen PO 1000 mg PO once Route: PO; lg3 21:18 Follow up: Response: No adverse reaction lg3 21:04 Drug: Ketorolac IM 30 mg IM once Route: IM; Site: left deltoid; lg3 21:17 Follow up: Response: No adverse reaction lg3 21:04 Drug: Methocarbamol PO 750 mg PO once Route: PO; lg3 21:17 Follow up: Response: No adverse reaction lg3 21:04 Drug: Lidoderm Topical Patch 5 % (700 mg/patch) 1 patches Topical once; leave on for 12 lg3 hours; cover most painful area; may cut into smaller pieces Route: Topical; Site: affected area; 21:17 Follow up: Response: No adverse reaction lg3 Medication: 19:25 VIS not applicable for this client. lg3 Outcome: 20:50 Discharge ordered by . ec2 21:18 Discharged to home ambulatory, with significant other, lg3 21:18 Condition: stable 21:18 Discharge instructions given to patient, Instructed on discharge instructions, follow up and referral plans. medication usage, Demonstrated understanding of instructions, follow-up care, medications, Prescriptions given X 1, 21:18 Patient left the ED. lg3 Signatures: Dispatcher [employer] Seema Mora RN RN lg3 Christine Alvarez mg5 Dayne Terry MD MD ec2
--- NOTE | 2024-06-15 20:51 | EDPHYS ---
Physician Documentation [facility] Name: Carlos Moe Age: 64 yrs Sex: Male : 1960 Arrival Date: 06/15/2024 Time: 18:54 Bed DX4 Private MD: ED Physician Dayne Terry HPI: 06/15 20:48 This 64 yrs old Male presents to ER via Ambulatory with complaints of Fall ec2 Injury. 20:48 Patient arrives today for evaluation of rib pain. States that he fell and injured his ec2 ribs. States that he fell in the shower. No LOC, no head strike, no neck pain.. Historical: - Allergies: 19:23 No Known Allergies; lg3 - Home Meds: 19:23 Unable to obtain [Active]; lg3 - PMHx: 19:23 Arthritis; Chronic obstructive lung disease; Disc Degeneration; GERD; Hypertension; lg3 Myocardial infarction; - PSHx: 19:23 bipass (Myocardial infarction); lg3 - Immunization history:: Adult Immunizations up to date. - Infectious Disease History:: Denies. - Social history:: Smoking status: Patient reports the use of cigarette tobacco products, smokes one pack cigarettes per day. Patient uses alcohol, on a daily basis. Patient/guardian denies using street drugs. ROS: 20:48 Constitutional: as per hpi ec2 Exam: 20:48 Constitutional: GEN: NAD Head: atraumatic Eyes: EOMI Ears: External ears are ec2 normal. CV: regular rate LUNGS: no respiratory distress ABD: non-distended SKIN: no evidence of rashes MSK: TTP to the right lateral ribs without deformities or crepitus. Vital Signs: 19:22 BP 136 / 90; Pulse 85; Resp 17 S; Temp 98.4(O); Pulse Ox 97% on R/A; Weight 70.31 kg lg3 (R); Height 5 ft. 6 in. (R); Pain 8/10; 21:04 BP 131 / 87; Pulse 81; Resp 17 S; Pulse Ox 98% on R/A; lg3 19:22 Body Mass Index 25.02 (70.31 kg, 167.64 cm) lg3 19:22 Pain Scale: Adult lg3 MDM: 20:48 Data reviewed: vital signs, nurses notes. ED course: Patient arrives today for ec2 evaluation of rib pain after fall. Examination remarkable for MSK findings as above. Chest x-ray and rib series showed no bony fracture. No evidence of pneumothorax. Will treat the patient's pain and discharged home have the patient follow-up with PCP. Considered rib fracture, contusion, pneumothorax.. 20:50 Medical Screening Exam initiated ec2 06/15 19:34 Order name: CXR XRAY; Complete Time: 20:27 ec2 06/15 19:34 Order name: Ribs Right XRAY; Complete Time: 20:27 ec2 Administered Medications: 21:04 Drug: Acetaminophen PO 1000 mg PO once Route: PO; lg3 21:18 Follow up: Response: No adverse reaction lg3 21:04 Drug: Ketorolac IM 30 mg IM once Route: IM; Site: left deltoid; lg3 21:17 Follow up: Response: No adverse reaction lg3 21:04 Drug: Methocarbamol PO 750 mg PO once Route: PO; lg3 21:17 Follow up: Response: No adverse reaction lg3 21:04 Drug: Lidoderm Topical Patch 5 % (700 mg/patch) 1 patches Topical once; leave on for 12 lg3 hours; cover most painful area; may cut into smaller pieces Route: Topical; Site: affected area; 21:17 Follow up: Response: No adverse reaction lg3 Disposition Summary: 06/15/24 20:50 Discharge Ordered Notes: Location: Home ec2 Condition: Stable ec2 Diagnosis - Rib Contusion ec2 Followup: ec2 - With: Private Physician - When: - Reason: Re-evaluation by your physician Discharge Instructions: - Discharge Summary Sheet ec2 - Rib Contusion ec2 Forms: - Medication Reconciliation Form ec2 - Antibiotic Education ec2 - Prescription Opioid Use ec2 - Patient Portal Instructions ec2 - Leadership Thank You Letter ec2 Prescriptions: - methocarbamol 500 mg Oral tablet - take 2 tablets ORAL route 4 times per day; 30 tablet; Refills: 0, Product ec2 Selection Permitted Signatures: Dispatcher [employer] eSema Mora RN RN lg3 Dayne Terry MD MD ec2 Corrections: (The following items were deleted from the chart) 19:34 19:34 Chest Single View+RAD.RAD.BRZ ordered. EDMS EDMS 19:34 19:34 Ribs Right+RAD.RAD.BRZ ordered. EDMS EDMS
[2024-06-15] MEDS ORDERED: ACETAMINOPHEN 500 MG TAB ONE (21:01)
[2024-06-15] MEDS ORDERED: methocarbamoL 750 MG TAB ONE (21:01)
[2024-06-15] MEDS ORDERED: KETOROLAC 30 MG/ML INJ ONE (21:02)
[2024-06-15] MEDS ORDERED: LIDOCAINE 4% PATCH ONE (21:03)
[2024-06-15 21:23] VITALS: TEMP 98.4
[2024-06-15 21:24] VITALS: BP 131/87; O2SAT 98
== END 2024-06-15 21:18 | disposition home or self-care (01) ==
LOC: ER 18:54
DX: S20.211A Contusion of right front wall of thorax, initial encounter (principal); W18.2XXA Fall in (into) shower or empty bathtub, initial encounter
CPT/HCPCS: 71045; 96372; 99284

== ENCOUNTER 2025-03-27 00:06 | Emergency (ER) | payer OTHER ==
[2025-03-27 01:22] LABS: Absolute Lymphocytes (CBC) 2.3 K/uL (0.7-4.9); Hematocrit 45.5 % (39.6-49.0); Hemoglobin 16.1 g/dL (13.6-17.9); MCH 36.2 pg (27.0-35.0); MCHC 35.3 g/dL (32.0-36.0); MCV 102.4 fL (80-100); MPV 7.4 fL (7.6-11.3); Nucleated RBC Absolute Count 0.0 (0-0); Nucleated Red Blood Cells % 0.1 % (0-0); RBC Red Blood Cell Count 4.44 M/uL (4.33-5.43); White Blood Count 9.60 thou/uL (4.3-10.9)
[2025-03-27 01:31] LABS: METHAMPHETAM NEGATIVE (NEGATIVE); THC Cannibis NEGATIVE (NEGATIVE)
[2025-03-27 01:36] LABS: ALT/SGPT 36 U/L (16-61); AST/SGOT 32 U/L (15-37); Albumin 4.3 g/dL (3.4-5.0); Albumin/Globulin Ratio 1.2 (1.1-1.8); Alkaline Phosphatase 104 U/L (45-117); Anion Gap 11.1 mEq/L (5.0-15.0); BUN Blood Urea Nitrogen 9 mg/dL (7-18); Bilirubin Indirect, Calculated 0.6 mg/dL (0.2-0.8); Globulin 3.7 g/dL (2.3-3.5); Glucose Level 87 mg/dL (74-106); Potassium 3.1 mEq/L (3.5-5.1)
[2025-03-27 01:51] LABS: PT Prothrombin Time 9.9 SECONDS (10-13.0); PTT, Activated Partial Thromb 32.6 SECONDS (27.2-37.4); Protime INR 0.87
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
[2025-03-27] MEDS ORDERED: NICOTINE 21 MG/PAT TD ONE (08:17)
[2025-03-27 19:02] VITALS: O2SAT 98
[2025-03-27 19:05] VITALS: BP 123/82; TEMP 98.3
== END 2025-03-27 17:07 ==
LOC: ER 00:06
DX: T14.91XA Suicide attempt, initial encounter (principal); X71.3XXA Intentional self-harm by drowning and submersion in natural water, initial encounter; F32.A Depression, unspecified; F10.10 Alcohol abuse, uncomplicated; I10 Essential (primary) hypertension; J44.9 Chronic obstructive pulmonary disease, unspecified; I25.2 Old myocardial infarction; F17.210 Nicotine dependence, cigarettes, uncomplicated
CPT/HCPCS: 36415; 80048; 80076; 80143; 80179; 80307; 82077; 85025; 85610; 85730; 93005; 99285